=== PATIENT | female | born 1990 | race Caucasian/White ===

== ENCOUNTER 2018-04-13 20:34 | Observation (INO) ==
--- NOTE | 2018-04-13 22:14 | Emergency Department Note ---
Disposition Clinical Impression: Abscess of left axilla Cellulitis Qualifiers: Site of cellulitis: extremity Site of cellulitis of extremity: axilla Laterality: left Qualified Code(s): L03.112 - Cellulitis of left axilla Disposition: Admitted As Inpatient Condition: Fair Referrals: NONE,PCP [Primary Care Provider] - Forms: ED Satisfaction Letter Time of Disposition: 00:21 Skin/Abscess/FB HPI Chief complaint: ED General Medical Stated complaint: ABSCESS/DIF WALKING Time Seen by Provider: 04/13/18 21:24 Source: patient Limitations: no limitations Nursing Notes Reviewed: Yes Vital Signs Reviewed: Yes HPI Narrative: 27-year-old female presents to the ER with complaints of abscess and joint pain. Patient states that she has an abscess in the left axilla for about a week that has been enlarging and is now red, warm, hot and tender. She states that nothing has drained out of it and it has been too tender for her to try to squeeze. She states that she has gotten abscesses in the past in her groin and on her butt that she has squeezed herself without any need for I&D or antibiotics. She states that over the last 3 days she has been getting a red rash all over her arms and legs, her joints are all painful and hot to the touch. She is having trouble walking secondary to the pain in her knees. She has been feverish and feeling weak and fatigued. She tried taking some blue medication that gets rid of infection that you can buy at the [employer] that did not help. She denies any loss of bowel or bladder, any back pain, any saddle paresthesia. She denies headache, vision changes, chest pain, shortness of breath, abdominal pain, nausea, vomiting, diarrhea. She smokes marijuana but denies any IVDU since 2010. Previous Rx's Medication Instructions Recorded Erythromycin OPTH Oint 1 cm RIGHT EYE QID #1 packet 01/18/16 [Erythromycin] Flurbiprofen Opth Drops 1 drop RIGHT EYE Q6HR PRN #1 bottle 01/18/16 Vicente/Poly/HC *EAR* SOLN 4 drop RIGHT EAR QID 7 Days 06/15/17 [Cortisporin *EAR* SOLN] solution Allergies Allergy/AdvReac Type Severity Reaction Status Date / Time Amoxicillin Allergy Swelling Verified 04/13/18 20:40 of Lip/Tongue/Throat Penicillins [PCN] Allergy Swelling Verified 04/13/18 20:40 of Lip/Tongue/Throat Constitutional: Reports: fever, chills Cardiovascular: Denies: chest pain, palpitations, dyspnea on exertion Respiratory: Denies: dyspnea Gastrointestinal: Denies: abdominal pain, nausea, vomiting, diarrhea, constipation Genitourinary: Denies: dysuria, hematuria Musculoskeletal: Reports: arthralgia Integumentary: Reports: rash, other (abscess) Neurological: Reports: weakness, abnormal gait. Denies: headache, paresthesias Psychiatric: Reports: anxiety Past Medical History - Past Medical History Attestation: Yes The following information was validated with the patient. 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 Absent: tenderness, lymphadenopathy - Chest Chest inspection: Present: symmetric chest wall rise, rash - Respiratory Respiratory exam: Present: normal lung sounds bilaterally. Absent: wheezes, stridor, accessory muscle use - Cardiovascular Cardiovascular exam: Present: tachycardia, +S1, +S2. Absent: systolic murmur, diastolic murmur - Abdominal Exam Abdominal exam: Present: soft, Non-Tender. Absent: tenderness, distention, guarding, rebound, rigidity - Expanded Lower Extremity Exam Knee exam: Present: tenderness, erythema, other (warmth) Ankle exam: Present: erythema Neurovascular/Tendon exam: Absent: pulse deficit - Neurological Exam Neurological exam: Present: alert, oriented X3 - Psychiatric Psychiatric exam: Present: anxious - Skin Skin exam: Present: warm (skin is hot to the touch), rash, erythema - Expanded Skin Exam Type of lesion: Present: rash, abscess (left axilla, warm, erythemetous, 2CM in diameter, raised) Distribution: neck, chest, LUE, LLE, RLE Description: Present: erythematous (lacy red rash over bilateral knees, LE, left arm), swelling Course Course Narrative: 27-year-old female presents to the ER with complaints of abscess and joint pain. Patient states that she has an abscess in the left axilla for about a week that has been enlarging and is now red, warm, hot and tender. She states that nothing has drained out of it and it has been too tender for her to try to squeeze. She states that over the last 3 days she has been getting a red rash all over her arms and legs, her joints are all painful and hot to the touch. She is having trouble walking secondary to the pain in her knees. She has been feverish and feeling weak and fatigued. Denies recent IVDU, last used in 2010. She does smoke marijuana. On exam pt appears ill. She has a lacy red rash all over her body that is warm to the touch. She has a 2cm abscess in the left axilla that is erythemetous, warm, tender and raised. The left arm is swollen. Knees are not swollen, but are warm to the touch as is her whole body. Pt also tachycardic. Suspect sepsis secondary to abscess. Will initiate sepsis protocol. Plan to I&D abscess. Pt will require admission for IV abx. - Reevaluation(s) Reevaluation #1: I&D of abscess in left axilla perfomed. Large amount of purulent material drained. Wound packed with iodoform. Pt tolerated well. Wound culture obtained and sent to lab. Pt started on IV vanc. Will admit due to need for IV abx and need for further monitoring of erythema of left arm and knees, joint pain. Time: 23:15 - Consultations Consultation #1: Case discussed with Dr. Handy with the hospitalist service who has accepted the pt for admission. Time: 00:14 Vital Signs Temperature 98.5 F 04/13/18 20:40 Pulse Rate 116 04/13/18 20:40 Respiratory Rate 16 04/13/18 20:40 Blood Pressure 107/58 04/13/18 20:40 O2 Sat by Pulse Oximetry 99 04/13/18 20:40 Temperature 99.6 F 04/13/18 21:56 Pulse Rate 97 04/13/18 23:17 Respiratory Rate 20 04/14/18 00:10 Blood Pressure 109/51 04/14/18 00:10 O2 Sat by Pulse Oximetry 100 04/13/18 23:17 Oxygen Delivery Oxygen Delivery Room Air Procedures - Abscess I/D Consent obtained: verbal consent Site: upper extremity (axilla) Side (if applicable): left Sedation/analgesia: none Local Anesthetic: lidocaine 1% Amount of Anesthesia Used (mL): 6 Technique: incised with #11 blade Amount of fluid: 1 (large amount of purulent fluid) Irrigation: No Packing used?: iodoform Complications: pain Skin/Abscess/Foreign Body - MDM Narrative Medical decision making narrative: 27-year-old female presents to the ER with complaints of abscess and joint pain. Patient states that she has an abscess in the left axilla for about a week that has been enlarging and is now red, warm, hot and tender. She states that over the last 3 days she has been getting a red rash all over her arms and legs, her joints are all painful and hot to the touch. She is having trouble walking secondary to the pain in her knees. She has been feverish and feeling weak and fatigued. Denies recent IVDU, last used in 2010. On exam pt appears ill. She has a lacy red rash all over her body that is warm to the touch. She has a 2cm abscess in the left axilla that is erythemetous, warm, tender and raised. The left arm is swollen. Knees are not swollen, but are warm to the touch as is her whole body. Pt also tachycardic. Suspect sepsis secondary to abscess. CBC, BMP, trop, lactic acid WNL. Blood cultures drawn and pending. EKG NSR, CXR negative. I&D performed with large amount of purulent material drained. Wound culture obtained and stent Abscess packed with iodoform packing. Pt started on IV vanc. Will admit for IV abx and further workup of pt condition. - Differential Diagnosis Likely: abscess of skin or subcutaneous tissue - Medical Records Medical records reviewed: Yes I reviewed the patient's medical records. - Lab Data Lab results reviewed: Yes I reviewed the patient's lab results. Result diagrams: 04/13/18 22:08 04/13/18 22:08 Lab Results 04/13/18 04/13/18 04/13/18 Range/Units 22:08 22:08 22:08 WBC 10.4 (4.3-11.1) K/mcL RBC 4.41 (3.82-4.97) M/mcL Hgb 13.0 (11.5-15.4) g/dL Hct 38.4 (35.3-44.9) % MCV 87.1 (83.0-100.0) fL MCH 29.5 (28.0-33.3) pg MCHC 33.9 (31.6-35.5) g/dL RDW 12.9 (11.5-14.5) % Plt Count 297 (140-400) K/mcL MPV 9.3 L (9.4-12.4) fL Immature Gran % 0.6 (0-4) % Seg Neutrophils % 77.0 % Lymphocytes % 12.3 % Monocytes % 4.5 % Eosinophils % 5.5 % Basophils % 0.1 % Neutrophils # 8.0 (1.6-8.9) K/mcL Lymphocytes # 1.3 (0.6-4.6) K/mcL Monocytes # 0.5 (0.0-1.3) K/mcL Eosinophils # 0.6 (0.0-0.6) K/mcL Basophils # 0.0 (0.0-0.2) K/mcL PT 13.6 H (9.4-12.1) Seconds INR 1.2 APTT 29.2 (26.0-36.0) Seconds Sodium 133 L (136-145) mEq/L Potassium 3.6 (3.5-5.1) mEq/L Chloride 101 (98-107) mEq/L Carbon Dioxide 23 (23-29) mEq/L BUN 8 (6-20) mg/dL Creatinine 0.67 (0.60-1.20) mg/dL Est GFR ( Amer) > 60 (> 60) Est GFR (Non-Af Amer) > 60 (> 60) BUN/Creatinine Ratio 12 (6-26) Glucose 155 H (70-105) mg/dL Calculated Osmolality 277 L (280-300) Lactic Acid (0.5-2.2) mmol/L Calcium 9.0 (8.6-10.3) mg/dL Phosphorus 2.0 L (2.7-4.5) mg/dL Magnesium 1.7 (1.6-2.6) mg/dL Total Bilirubin 0.6 (0.3-1.0) mg/dL Direct Bilirubin 0.1 (0.0-0.2) mg/dL Indirect Bilirubin 0.5 (0.0-1.2) mg/dL AST 13 (13-39) Units/L ALT 24 (7-52) Units/L Alkaline Phosphatase 50 (34-104) Units/L Troponin I < 0.03 (< 0.04) ng/mL Serum Total Protein 7.1 (6.4-8.9) g/dL Albumin 3.6 (3.5-5.7) g/dL Globulin 3.5 (2.4-3.5) g/dL Albumin/Globulin Ratio 1.0 L (1.1-2.2) Ur Specimen Adequacy Urine Color (Yellow) Urine Clarity (Clear) Urine pH (5.0-8.0) pH Units Ur Specific [place] (1.010-1.025) Urine Protein (Neg-Trace) mg/dL Urine Glucose (UA) (Normal) mg/dL Urine Ketones (Negative) mg/dL Urine Blood (Negative) Urine Nitrite (Negative) Urine Bilirubin (Negative) Urine Urobilinogen (Normal) mg/dL Ur Leukocyte Esterase (Negative) Urine Microscopic RBC (0-3) per hpf Urine Microscopic WBC (0-3) per hpf Ur Squamous Epith Cells (None-Few) per lpf Urine Bacteria (None-Few) per hpf Urine Mucus (Few) Ur Culture Indicated? (NO) 04/13/18 04/13/18 Range/Units 22:26 23:27 WBC (4.3-11.1) K/mcL RBC (3.82-4.97) M/mcL Hgb (11.5-15.4) g/dL Hct (35.3-44.9) % MCV (83.0-100.0) fL MCH (28.0-33.3) pg MCHC (31.6-35.5) g/dL RDW (11.5-14.5) % Plt Count (140-400) K/mcL MPV (9.4-12.4) fL Immature Gran % (0-4) % Seg Neutrophils % % Lymphocytes % % Monocytes % % Eosinophils % % Basophils % % Neutrophils # (1.6-8.9) K/mcL Lymphocytes # (0.6-4.6) K/mcL Monocytes # (0.0-1.3) K/mcL Eosinophils # (0.0-0.6) K/mcL Basophils # (0.0-0.2) K/mcL PT (9.4-12.1) Seconds INR APTT (26.0-36.0) Seconds Sodium (136-145) mEq/L Potassium (3.5-5.1) mEq/L Chloride (98-107) mEq/L Carbon Dioxide (23-29) mEq/L BUN (6-20) mg/dL Creatinine (0.60-1.20) mg/dL Est GFR ( Amer) (> 60) Est GFR (Non-Af Amer) (> 60) BUN/Creatinine Ratio (6-26) Glucose (70-105) mg/dL Calculated Osmolality (280-300) Lactic Acid 1.9 (0.5-2.2) mmol/L Calcium (8.6-10.3) mg/dL Phosphorus (2.7-4.5) mg/dL Magnesium (1.6-2.6) mg/dL Total Bilirubin (0.3-1.0) mg/dL Direct Bilirubin (0.0-0.2) mg/dL Indirect Bilirubin (0.0-1.2) mg/dL AST (13-39) Units/L ALT (7-52) Units/L Alkaline Phosphatase (34-104) Units/L Troponin I (< 0.04) ng/mL Serum Total Protein (6.4-8.9) g/dL Albumin (3.5-5.7) g/dL Globulin (2.4-3.5) g/dL Albumin/Globulin Ratio (1.1-2.2) Ur Specimen Adequacy See below A Urine Color Dark Yellow (Yellow) Urine Clarity Turbid A (Clear) Urine pH 6.0 (5.0-8.0) pH Units Ur Specific [place] 1.022 (1.010-1.025) Urine Protein 30 H (Neg-Trace) mg/dL Urine Glucose (UA) Normal (Normal) mg/dL Urine Ketones Trace H (Negative) mg/dL Urine Blood Small H (Negative) Urine Nitrite Negative (Negative) Urine Bilirubin Negative (Negative) Urine Urobilinogen Normal (Normal) mg/dL Ur Leukocyte Esterase Small H (Negative) Urine Microscopic RBC 0-3 (0-3) per hpf Urine Microscopic WBC 5-15 H (0-3) per hpf Ur Squamous Epith Cells Many H (None-Few) per lpf Urine Bacteria Many H (None-Few) per hpf Urine Mucus Few (Few) Ur Culture Indicated? NO. A (NO) - Radiology Data Radiology results reviewed: Yes I reviewed the patient's radiology results. Chest X-Ray 04/13/18 22:09 IMPRESSION: Negative portable study. D/ / Thania Esquivel Cha, MD / Thania Esquivel Cha, MD Interpreting Provider: Thania Esquivel Cha, MD - EKG Data EKG attestation: Yes I reviewed and interpreted this EKG. EKG results narrative: NSR without ST elevation or depressions. VR 88, UT 149, QRS 100, QT 337.
[2018-04-13] MEDS: 0.9 % Sodium Chloride 1,000 ML IVC ONE ×2 (22:33→23:26)
[2018-04-13] MEDS ORDERED: *HR* FentaNYL (PF) 100 MCG/2 ML VIAL IVP ONE (22:50)
[2018-04-13 22:53] LABS: Basophils % 0.1 %; Eosinophils # 0.6 K/mcL (0.0-0.6); Eosinophils % 5.5 %; Hematocrit 38.4 % (35.3-44.9); Immature Granulocytes % 0.6 % (0-4); Lymphocytes # 1.3 K/mcL (0.6-4.6); Lymphocytes % 12.3 %; Mean Corpuscular HGB Conc 33.9 g/dL (31.6-35.5); Mean Corpuscular Hemoglobin 29.5 pg (28.0-33.3); Mean Corpuscular Volume 87.1 fL (83.0-100.0); Mean Platelet Volume 9.3 fL (9.4-12.4); Monocytes # 0.5 K/mcL (0.0-1.3); Monocytes % 4.5 %; Platelet Count 297 K/mcL (140-400); Red Blood Count 4.41 M/mcL (3.82-4.97); Red Cell Distribution Width 12.9 % (11.5-14.5)
[2018-04-13 22:58] LABS: INR 1.2; Prothrombin Time 13.6 Seconds (9.4-12.1)
[2018-04-13 23:01] LABS: Activated Partial Thrombo Time 29.2 Seconds (26.0-36.0)
[2018-04-13 23:11] LABS: Troponin I < 0.03 ng/mL (< 0.04)
[2018-04-13 23:18] LABS: Alanine Aminotransferase 24 Units/L (7-52); Albumin 3.6 g/dL (3.5-5.7); Alkaline Phosphatase 50 Units/L (34-104); Aspartate Amino Transferase 13 Units/L (13-39); BUN/Creatinine Ratio 12 (6-26); Bilirubin,Direct 0.1 mg/dL (0.0-0.2); Bilirubin,Indirect 0.5 mg/dL (0.0-1.2); Bilirubin,Total 0.6 mg/dL (0.3-1.0); Blood Urea Nitrogen 8 mg/dL (6-20); Carbon Dioxide 23 mEq/L (23-29); Chloride 101 mEq/L (98-107); Globulin 3.5 g/dL (2.4-3.5); Glucose 155 mg/dL (70-105); Magnesium 1.7 mg/dL (1.6-2.6); Osmolality,Calculated 277 (280-300); Potassium 3.6 mEq/L (3.5-5.1); Sodium 133 mEq/L (136-145); Total Protein 7.1 g/dL (6.4-8.9); eGFR For Non-African Americans > 60 (> 60)
[2018-04-13] MEDS ORDERED: 0.9 % Sodium Chloride 1,000 ML ONE (23:24)
[2018-04-13 23:38] LABS: Bilirubin,Urine Negative (Negative); Blood,Urine Small (Negative); Clarity,Urine Turbid (Clear); Color,Urine Dark Yellow (Yellow); Glucose,Urine (UA) Normal (Normal); Ketones,Urine Trace mg/dL (Negative); Leukocyte Esterase,Urine Small (Negative); Nitrite,Urine Negative (Negative); Protein,Urine 30 mg/dL (Neg-Trace); Specific Gravity,Urine 1.022 (1.010-1.025); Urobilinogen,Urine Normal (Normal)
[2018-04-13 23:40] LABS: RBC,Urine 0-3 per hpf (0-3); Squamous Epithelial Cell,Urine Many per lpf (None-Few)
[2018-04-13 23:43] LABS: Bacteria,Urine Many per hpf (None-Few); Mucus,Urine Few (Few)
--- NOTE | 2018-04-14 00:04 | Emergency Department Note ---
Disposition Clinical Impression: Abscess of left axilla, Cellulitis Disposition: Admitted As Inpatient Condition: Good Referrals: NONE,PCP [Primary Care Provider] - Forms: ED Satisfaction Letter, Work/School Release Time of Disposition: 00:04 General Adult HPI - General Chief complaint: ED General Medical Stated complaint: ABSCESS/DIF WALKING Time Seen by Provider: 04/13/18 21:24 Source: patient Limitations: no limitations - History of Present Illness Pain Scale: 4 - Related Data Previous Rx's Medication Instructions Recorded Erythromycin OPTH Oint 1 cm RIGHT EYE QID #1 packet 01/18/16 [Erythromycin] Flurbiprofen Opth Drops 1 drop RIGHT EYE Q6HR PRN #1 bottle 01/18/16 Vicente/Poly/HC *EAR* SOLN 4 drop RIGHT EAR QID 7 Days 06/15/17 [Cortisporin *EAR* SOLN] solution Allergies Allergy/AdvReac Type Severity Reaction Status Date / Time Amoxicillin Allergy Swelling Verified 04/13/18 20:40 of Lip/Tongue/Throat Penicillins [PCN] Allergy Swelling Verified 04/13/18 20:40 of Lip/Tongue/Throat Past Medical History - Past Medical History Medical history: Reports: hepatitis Psychiatric history: Reports: depression [employer]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 - Social History Smoking Status: Current every day smoker Smokeless Tobacco Status: No Alcohol use: Reports: occasionally Drug use: Reports: marijuana Physical Exam - General Limitations: no limitations General appearance: alert, in no apparent distress Course Vital Signs Temperature 98.5 F 04/13/18 20:40 Pulse Rate 116 04/13/18 20:40 Respiratory Rate 16 04/13/18 20:40 Blood Pressure 107/58 04/13/18 20:40 O2 Sat by Pulse Oximetry 99 04/13/18 20:40 Temperature 99.6 F 04/13/18 21:56 Pulse Rate 97 04/13/18 23:17 Respiratory Rate 22 04/13/18 23:17 Blood Pressure 91/61 04/13/18 23:17 O2 Sat by Pulse Oximetry 100 04/13/18 23:17 Oxygen Delivery Oxygen Delivery Room Air Medical Decision Making - Lab Data Result diagrams: 04/13/18 22:08 04/13/18 22:08 Lab Results 04/13/18 04/13/18 04/13/18 Range/Units 22:08 22:08 22:08 WBC 10.4 (4.3-11.1) K/mcL RBC 4.41 (3.82-4.97) M/mcL Hgb 13.0 (11.5-15.4) g/dL Hct 38.4 (35.3-44.9) % MCV 87.1 (83.0-100.0) fL MCH 29.5 (28.0-33.3) pg MCHC 33.9 (31.6-35.5) g/dL RDW 12.9 (11.5-14.5) % Plt Count 297 (140-400) K/mcL MPV 9.3 L (9.4-12.4) fL Immature Gran % 0.6 (0-4) % Seg Neutrophils % 77.0 % Lymphocytes % 12.3 % Monocytes % 4.5 % Eosinophils % 5.5 % Basophils % 0.1 % Neutrophils # 8.0 (1.6-8.9) K/mcL Lymphocytes # 1.3 (0.6-4.6) K/mcL Monocytes # 0.5 (0.0-1.3) K/mcL Eosinophils # 0.6 (0.0-0.6) K/mcL Basophils # 0.0 (0.0-0.2) K/mcL PT 13.6 H (9.4-12.1) Seconds INR 1.2 APTT 29.2 (26.0-36.0) Seconds Sodium 133 L (136-145) mEq/L Potassium 3.6 (3.5-5.1) mEq/L Chloride 101 (98-107) mEq/L Carbon Dioxide 23 (23-29) mEq/L BUN 8 (6-20) mg/dL Creatinine 0.67 (0.60-1.20) mg/dL Est GFR ( Amer) > 60 (> 60) Est GFR (Non-Af Amer) > 60 (> 60) BUN/Creatinine Ratio 12 (6-26) Glucose 155 H (70-105) mg/dL Calculated Osmolality 277 L (280-300) Lactic Acid (0.5-2.2) mmol/L Calcium 9.0 (8.6-10.3) mg/dL Phosphorus 2.0 L (2.7-4.5) mg/dL Magnesium 1.7 (1.6-2.6) mg/dL Total Bilirubin 0.6 (0.3-1.0) mg/dL Direct Bilirubin 0.1 (0.0-0.2) mg/dL Indirect Bilirubin 0.5 (0.0-1.2) mg/dL AST 13 (13-39) Units/L ALT 24 (7-52) Units/L Alkaline Phosphatase 50 (34-104) Units/L Troponin I < 0.03 (< 0.04) ng/mL Serum Total Protein 7.1 (6.4-8.9) g/dL Albumin 3.6 (3.5-5.7) g/dL Globulin 3.5 (2.4-3.5) g/dL Albumin/Globulin Ratio 1.0 L (1.1-2.2) Ur Specimen Adequacy Urine Color (Yellow) Urine Clarity (Clear) Urine pH (5.0-8.0) pH Units Ur Specific [place] (1.010-1.025) Urine Protein (Neg-Trace) mg/dL Urine Glucose (UA) (Normal) mg/dL Urine Ketones (Negative) mg/dL Urine Blood (Negative) Urine Nitrite (Negative) Urine Bilirubin (Negative) Urine Urobilinogen (Normal) mg/dL Ur Leukocyte Esterase (Negative) Urine Microscopic RBC (0-3) per hpf Urine Microscopic WBC (0-3) per hpf Ur Squamous Epith Cells (None-Few) per lpf Urine Bacteria (None-Few) per hpf Urine Mucus (Few) Ur Culture Indicated? (NO) 04/13/18 04/13/18 Range/Units 22:26 23:27 WBC (4.3-11.1) K/mcL RBC (3.82-4.97) M/mcL Hgb (11.5-15.4) g/dL Hct (35.3-44.9) % MCV (83.0-100.0) fL MCH (28.0-33.3) pg MCHC (31.6-35.5) g/dL RDW (11.5-14.5) % Plt Count (140-400) K/mcL MPV (9.4-12.4) fL Immature Gran % (0-4) % Seg Neutrophils % % Lymphocytes % % Monocytes % % Eosinophils % % Basophils % % Neutrophils # (1.6-8.9) K/mcL Lymphocytes # (0.6-4.6) K/mcL Monocytes # (0.0-1.3) K/mcL Eosinophils # (0.0-0.6) K/mcL Basophils # (0.0-0.2) K/mcL PT (9.4-12.1) Seconds INR APTT (26.0-36.0) Seconds Sodium (136-145) mEq/L Potassium (3.5-5.1) mEq/L Chloride (98-107) mEq/L Carbon Dioxide (23-29) mEq/L BUN (6-20) mg/dL Creatinine (0.60-1.20) mg/dL Est GFR ( Amer) (> 60) Est GFR (Non-Af Amer) (> 60) BUN/Creatinine Ratio (6-26) Glucose (70-105) mg/dL Calculated Osmolality (280-300) Lactic Acid 1.9 (0.5-2.2) mmol/L Calcium (8.6-10.3) mg/dL Phosphorus (2.7-4.5) mg/dL Magnesium (1.6-2.6) mg/dL Total Bilirubin (0.3-1.0) mg/dL Direct Bilirubin (0.0-0.2) mg/dL Indirect Bilirubin (0.0-1.2) mg/dL AST (13-39) Units/L ALT (7-52) Units/L Alkaline Phosphatase (34-104) Units/L Troponin I (< 0.04) ng/mL Serum Total Protein (6.4-8.9) g/dL Albumin (3.5-5.7) g/dL Globulin (2.4-3.5) g/dL Albumin/Globulin Ratio (1.1-2.2) Ur Specimen Adequacy See below A Urine Color Dark Yellow (Yellow) Urine Clarity Turbid A (Clear) Urine pH 6.0 (5.0-8.0) pH Units Ur Specific [place] 1.022 (1.010-1.025) Urine Protein 30 H (Neg-Trace) mg/dL Urine Glucose (UA) Normal (Normal) mg/dL Urine Ketones Trace H (Negative) mg/dL Urine Blood Small H (Negative) Urine Nitrite Negative (Negative) Urine Bilirubin Negative (Negative) Urine Urobilinogen Normal (Normal) mg/dL Ur Leukocyte Esterase Small H (Negative) Urine Microscopic RBC 0-3 (0-3) per hpf Urine Microscopic WBC 5-15 H (0-3) per hpf Ur Squamous Epith Cells Many H (None-Few) per lpf Urine Bacteria Many H (None-Few) per hpf Urine Mucus Few (Few) Ur Culture Indicated? NO. A (NO) Critical Care Time Critical Care Time: Yes Total Critical Care Time: 35 Attestation: Time spent in medical management of Sirs and potential sepsis from a local abscess in the left axilla with a spreading cellulitis. Attestation Statement - Attestation Attestation: I examined this patient and my medical decision-making was reviewed with the Resident Physician. I agree with the documented findings, disposition and treatment plan as described except to the extent set forth below. 27-year-old female in presented to the emergency room with a left axilla abscess. She appeared to be toxic upon arrival. Her entire body was flushed red and very hot to touch specifically her left axilla as well as the left upper extremity. I was concerned again for sepsis. She was slightly hypotensive and tachycardic and she felt febrile. She had some shakes and writers during this evaluation. We did do a local I&D to the left axilla of the abscess. We got a significant amount of pus and purulent drainage from this. We did pack this with iodoform gauze. She tolerated this procedure well. He was done by myself and Dr. Morrissey. It was done under my supervision. Patient's lactic acid was normal. She did not have a white count. She states she felt much better after the procedure. We have ordered IV vancomycin. Blood cultures. We also did a wound culture. I spoke with the hospitalist. She is getting IV fluids and pain medicine as well. Total critical care time spent was 35 minutes.
[2018-04-14] MEDS ORDERED: Ondansetron ODT 4 MG TAB.RAPDIS SL ONE (00:53)
[2018-04-14] MEDS ORDERED: 0.9 % Sodium Chloride 1,000 ML ONE (01:49)
[2018-04-14] MEDS: 0.9 % Sodium Chloride 1,000 ML IVC ONE (01:59)
[2018-04-14] MEDS ORDERED: Naloxone 0.4 MG/ML INJ IVP PRN (02:12)
[2018-04-14] MEDS ORDERED: Acetaminophen 325 MG TABLET PO PRN (02:12)
[2018-04-14] MEDS ORDERED: 0.9 % Sodium Chloride 500 ML IVC PRN (02:16)
[2018-04-14] MEDS ORDERED: 0.9 % Sodium Chloride 1,000 ML IVC ONE (02:17)
--- NOTE | 2018-04-14 03:11 | Internal Med History&Physical ---
Date of Encounter: 04/14/18 Time of Encounter: 02:00 Internal Medicine - H&P: HPI Chief complaint: left axillary pain History of present illness: Ms. Lopez is a 27 year old female with no significant past medical history presented to the ED with pain over left axillary lesion. She states that she noticed progressively worsening swelling over her left axilla which became red and extremely tender over the last few days. She did not notice any discharge from the lesion but it was too painful for her to try squeezing it out. She also complains of subjective fever with chills. Denies any cardiopulmonary, GI , or symptoms. She states that she smokes marijuana but denies any IV drug use currently. In the ED, she was afebrile but tachycardic at 116. Her blood pressure was borderline low in the low 100s over 60s, improved with IVF. Initial blood work showed normal white blood cell count and BMP. I&D was performed in the emergency department which drained a large amount of purulent fluid. It was sent for wound culture and the site was packed with iodoform packing. Patient was started on IV vancomycin and admitted for further management. Past Med Surg Social Fam HX - Past Medical History Attestation: Yes The following information was validated with the patient. Medical history: hepatitis Additional medical history: HEP C Psychiatric history: depression - Past Surgical History Surgical History: non-contributory - Social History Smoking Status: Current every day smoker Smokeless Tobacco Status: No Alcohol use: occasionally Drug use: marijuana Internal Medicine - H&P: Meds Erythromycin OPTH Oint [Erythromycin] 1 cm RIGHT EYE QID #1 packet 01/18/16 [Rx] Flurbiprofen Opth Drops 1 drop RIGHT EYE Q6HR PRN #1 bottle 01/18/16 [Rx] Vicente/Poly/HC *EAR* SOLN [Cortisporin *EAR* SOLN] 4 drop RIGHT EAR QID 7 Days solution 06/15/17 [Rx] 3 Allergy/AdvReac Type Severity Reaction Status Date / Time Amoxicillin Allergy Swelling Verified 04/13/18 20:40 of Lip/Tongue/Throat Penicillins [PCN] Allergy Swelling Verified 04/13/18 20:40 of Lip/Tongue/Throat All Systems PM: A 10-system review of systems was performed and is negative for pertinent findings except as documented above in the HPI. - Constitutional Vitals: Temp Pulse Resp BP Pulse Ox 99.3 F 88 16 100/52 96 04/14/18 00:40 04/14/18 00:40 04/14/18 00:40 04/14/18 00:40 04/14/18 00:40 Exam: General: Alert and oriented HEENT:EOM, pupils equal, round, and reactive. Cardiovascular:Normal S1 & S2, no murmurs or gallops. No JVD. Pulse regular. Lungs:Normal breath sounds, no wheezes or crackles. Abdomen:Soft, non-tender, no rigidity. Extremities: Left axilla dressing dry and intact. No joint swelling Neurological:Normal cognition and motor skills. Skin:Normal color, no rash Pulses:Carotid and radial pulses normal +2. Rest of the physical exam is non-contributory Internal Med - H&P Results - Labs CBC & Chem 7: 04/13/18 22:08 04/13/18 22:08 - Assessment and plan (1) Abscess of left axilla Current Visit: Yes Status: Acute Assessment and plan: Status post I&D in the emergency department Fluid sent for wound culture, follow-up Continue IV vancomycin for now, de-escalate based on the wound culture result. Check A1c (2) Hyperglycemia Current Visit: Yes Status: Acute Assessment and plan: Check A1c as above (3) DVT prophylaxis Current Visit: Yes Status: Acute Assessment and plan: SCD, encourage ambulation - Time Spent With Patient Total time spent is greater than 50% in coordination of care (as documented) at patient's floor/unit and/or counseling patient:
[2018-04-14 05:15] LABS: Hematocrit 32.3 % (35.3-44.9); Mean Corpuscular HGB Conc 32.8 g/dL (31.6-35.5); Mean Corpuscular Hemoglobin 28.6 pg (28.0-33.3); Mean Corpuscular Volume 87.3 fL (83.0-100.0); Mean Platelet Volume 9.4 fL (9.4-12.4); Platelet Count 262 K/mcL (140-400); Red Cell Distribution Width 13.2 % (11.5-14.5)
[2018-04-14 05:21] LABS: Hemoglobin 10.6 g/dL (11.5-15.4)
[2018-04-14 05:33] LABS: BUN/Creatinine Ratio 11 (6-26); Blood Urea Nitrogen 6 mg/dL (6-20); Carbon Dioxide 23 mEq/L (23-29); Chloride 109 mEq/L (98-107); Glucose 109 mg/dL (70-105); Magnesium 1.6 mg/dL (1.6-2.6); Osmolality,Calculated 282 (280-300); Potassium 3.5 mEq/L (3.5-5.1); Sodium 137 mEq/L (136-145); eGFR For Non-African Americans > 60 (> 60)
[2018-04-14] MEDS: *HR* HYDROcodone/Acet 5/325 mg TABLET PO PRN ×2 (07:49→16:40)
[2018-04-14 08:20] LABS: Estimated Average Glucose 120 mg/dl; Hemoglobin A1C 5.8 %
--- NOTE | 2018-04-14 13:55 | Event Note ---
Date of Encounter: 04/14/18 Time of Encounter: 11:00 27-year-old female with history of chronic hepatitis C, tobacco abuse, admitted with left axillary swelling and pain. She was noted to have an abscess, that was drained in the emergency room. Seen and examined at bedside. Reports improving pain and swelling in left axilla. Chest-S1, S2 heard. Left axilla-erythema, induration and swelling improving. Packing intact. Left axillary abscess-status post incision and drainage in the emergency room. Follow-up Gram stain and culture on the aspirate. Continue IV vancomycin for now given improvement. Blood cultures negative. Pain control with when necessary oxycodone.
[2018-04-14] MEDS ORDERED: MetroNIDAZOLE 500 MG/100 ML 500 MG/100 ML BAG IVPB SCH (16:00)
--- NOTE | 2018-04-14 16:20 | Electrocardiograph Report ---
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
[2018-04-15 02:03] LABS: Amphetamine Screen,Urine Negative ng/mL (Cutoff=1000); Barbiturate Screen,Urine Negative ng/mL (Cutoff=200); Benzodiazepines Screen,Urine Negative ng/mL (Cutoff=200); Cannabinoid Screen,Urine Positive ng/mL (Cutoff = 50); Cocaine Screen,Urine Negative ng/mL (Cutoff= 300); Opiate Screen,Urine Positive ng/mL (Cutoff=300); Phencyclidine Screen,Urine Negative ng/mL (Cutoff=25)
[2018-04-15 07:25] LABS: Basophils % 0.2 %; Eosinophils # 0.7 K/mcL (0.0-0.6); Eosinophils % 6.2 %; Hematocrit 30.5 % (35.3-44.9); Hemoglobin 9.9 g/dL (11.5-15.4); Immature Granulocytes % 0.9 % (0-4); Lymphocytes # 1.8 K/mcL (0.6-4.6); Lymphocytes % 16.8 %; Mean Corpuscular HGB Conc 32.5 g/dL (31.6-35.5); Mean Corpuscular Hemoglobin 28.4 pg (28.0-33.3); Mean Corpuscular Volume 87.6 fL (83.0-100.0); Mean Platelet Volume 9.2 fL (9.4-12.4); Monocytes # 0.7 K/mcL (0.0-1.3); Monocytes % 6.5 %; Neutrophils # 7.4 K/mcL (1.6-8.9); Platelet Count 241 K/mcL (140-400); Red Blood Count 3.48 M/mcL (3.82-4.97); Red Cell Distribution Width 13.4 % (11.5-14.5); Segmented Neutrophils % 69.4 %
[2018-04-15] MEDS: *HR* OxyCODONE Immed Rel 5 MG TABLET PO PRN ×2 (07:31→14:02)
[2018-04-15 07:49] LABS: BUN/Creatinine Ratio 9 (6-26); Blood Urea Nitrogen 5 mg/dL (6-20); Calcium 8.1 mg/dL (8.6-10.3); Carbon Dioxide 24 mEq/L (23-29); Chloride 107 mEq/L (98-107); Glucose 91 mg/dL (70-105); Osmolality,Calculated 279 (280-300); Potassium 3.4 mEq/L (3.5-5.1); Sodium 136 mEq/L (136-145); eGFR For Non-African Americans > 60 (> 60)
[2018-04-15] MEDS: MetroNIDAZOLE 500 MG/100 ML 500 MG/100 ML BAG IVPB SCH ×2 (09:30→15:41)
[2018-04-15] MEDS ORDERED: Potassium Chloride Elixir 20 MEQ/15 ML UDC PO ONE (10:34)
[2018-04-15 15:39] VITALS: BP 87/56
[2018-04-15] MEDS: *HR* HYDROcodone/Acet 5/325 mg TABLET PO PRN (15:39)
--- NOTE | 2018-04-15 15:54 | Internal Med Progress Note ---
Hospitalist Progress Note - Encounter Date of Encounter: 04/15/18 Time of Encounter: 11:00 - Subjective Interval History: Improving pain and sweating in left axilla. Reports an allergic reaction over her abdominal wall with redness, itching and some swelling. Also reports pain in both her legs. No fever, chills, nausea or vomiting. - Exam Vitals: Temp Pulse Resp BP Pulse Ox 98.8 F 86 18 87/56 97 04/15/18 15:37 04/15/18 15:37 04/15/18 15:37 04/15/18 15:37 04/15/18 15:37 Exam: General: Obese female lying comfortably in bed in mild distress Chest: Normal thoracic expansion. Normal breath sounds. Clear to auscultation. Heart: Normal S1 & S2; rhythmic. No rubs or murmurs. Abdomen: Non-distended, soft and nontender, obese; erythema and wheal and flare reaction noted on anterior abdominal wall Extremities: No clubbing, cyanosis or edema. No calf tenderness. Normal distal pulses. Neurological: Awake, alert and oriented to person, place and time. No focal deficits. Skin- left axilla- s/p I&D, iodoform packing with drainage noted; non-foul- smelling; some remaining induration at the base of axilla, much improved erythema and tenderness and swelling in the surrounding area - Assessment and Plan (1) Abscess of left axilla Current Visit: Yes Status: Acute Assessment and Plan: Status post incision and drainage in the emergency room. Blood cultures remain negative. Preliminary wound culture grows gram-positive cocci. Continue IV vancomycin and Flagyl. Local wound care with iodoform packing. Patient needs home health services for discharge for wound care. Case management following. Pain control with when necessary oxycodone. Supportive care. (2) DVT prophylaxis Current Visit: Yes Status: Acute Assessment and Plan: On EPCD's (3) Tobacco abuse Current Visit: Yes Status: Chronic (4) Hepatitis C Current Visit: Yes Status: Chronic - Time Spent with Patient Total time spent is greater than 50% in coordination of care (as documented) at patient's floor/unit and/or counseling patient: Plan of Care Discussed with: patient Internal Medicine: Result - Labs CBC & Chem 7: 04/15/18 07:05 04/15/18 07:05 Labs: Short CBC 08/10/18 Range/Units 07:05 WBC 10.7 (4.3-11.1) K/mcL Hgb 9.9 L (11.5-15.4) g/dL Hct 30.5 L (35.3-44.9) % Plt Count 241 (140-400) K/mcL Neutrophils # 7.4 (1.6-8.9) K/mcL BMP 04/15/18 07:05 Sodium 136 Potassium 3.4 L Chloride 107 Carbon Dioxide 24 BUN 5 L Creatinine 0.57 L Glucose 91 Calcium 8.1 L - ABG Interpretation ABG results: PT/INR, D-dimer PT 13.6 Seconds (9.4-12.1) H 04/13/18 22:08 Consult Discharge Plan - Plan Referrals: NONE,PCP [Non-Partnered Physician] - (4) Hepatitis C Qualifiers: Viral hepatitis chronicity: chronic Hepatic coma status: without hepatic coma Qualified Code(s): B18.2 - Chronic viral hepatitis C
[2018-04-15] MEDS ORDERED: Aminoglycoside Consult 1 EACH MC ONE (18:52)
--- NOTE | 2018-04-17 08:17 | Discharge Summary ---
- NOTES TO OUTPATIENT PROVIDER Notes to Outpatient Provider: To follow up for left axillary abscess s/p I&D Date of Encounter: 04/15/18 Time of Encounter: 18:00 - Discharge Diagnosis (1) Abscess of left axilla Priority: Primary Status: Acute (2) Tobacco abuse Priority: Secondary Status: Chronic (3) Hepatitis C Priority: Secondary Status: Chronic Qualifiers: Viral hepatitis chronicity: chronic Hepatic coma status: without hepatic coma Qualified Code(s): B18.2 - Chronic viral hepatitis C Hospital course: Ms. Lopez is a 27 year old female admitted for left axillary abscess, which was I&D in the ER. She was started on IV Vancomycin and Flagyl, blood cultures remained negative. SHe was improving. Needs wound care for iodoform packing of left axillary wound. She had multiple nonspecific complaints during her stay including B/L leg pains , demanding IV pain meds. She eventually left AMA in the evening, refused to be evaluated by me, refused prescriptions for antibiotics. SHe was noted to be alert and oriented when she left AMA. Discharge discussed with: nurse, case management - Time Spent with Patient Total time spent providing and/or coordinating discharge services: Less than 30 minutes - Discharge Medications Home Medications: No Known Home Drugs 04/15/18 [History] Allergies/Adverse Reactions: 3 Allergy/AdvReac Type Severity Reaction Status Date / Time Amoxicillin Allergy Swelling Verified 04/15/18 07:06 of Lip/Tongue/Throat Penicillins [PCN] Allergy Swelling Verified 04/15/18 07:06 of Lip/Tongue/Throat Date of admission: 04/14/18 00:10 Primary care physician: Jed Duke MD Consults: 04/15/18 15:08 Consult to Junior Software Developer [CONS] Routine Reason for SW Consult: wound care possible home antibiotics Anticipated date of discharge: 04/15/18 - Constitutional Vitals: Temp Pulse Resp BP Pulse Ox 98.8 F 86 18 87/56 97 04/15/18 15:37 04/15/18 15:37 04/15/18 15:37 04/15/18 15:37 04/15/18 15:37 General appearance: Present: A&O X 3 - Patient Status Disposition: Left Against Medical Advice Condition: Fair - Discharge Instructions Follow Up With: NONE,PCP [Non-Partnered Physician] - Forms: ED Satisfaction Letter
== END 2018-04-15 18:53 | disposition left against medical advice (07) ==
LOC: 3ANU 20:34 → EMEROO 20:34 → SUATTDRO 04-14 00:10 → 3ANU 04-14 00:19
PROVIDERS: ADMIT Family Medicine; ATTEND Internal Medicine